=== PATIENT | male | born 1955 | race Caucasian/White ===

== ENCOUNTER → 2020-09-25 08:47 | Outpatient (BNVA) | payer MEDICARE, MEDICAID, SELFPAY | PROVIDERS: Family Provider Anesthesiology Pain Medicine; Visit Provider Nurse Practitioner Family | DX: Z20.828 Contact with and (suspected) exposure to other viral communicable diseases (principal) | CPT/HCPCS: 87635 ==

== ENCOUNTER 2021-10-27 14:05 | Outpatient (CLI) | payer SELFPAY ==
--- NOTE | 2021-10-27 14:20 | USCV_ITS ---
Omer Kartik Age: 66 Gender: M : 1955 Exam Date: 10/27/2021 14:40 Ordering Phys: Enzo West DO Technologist: Tunde Cuello Exam Location: [facility] – [place] Indication: edema PROCEDURES: Venous duplex imaging was performed in only the right lower extremity. The following venous structures were evaluated: common femoral vein, profunda vein, proximal portion of the greater saphenous vein, superficial femoral vein, and the popliteal vein. In addition, the posterior tibial and peroneal trunk were evaluated. Serial compression, augmentation maneuvers, and spectral Doppler flow evaluation were performed. FINDINGS: Normal 2-D Doppler and augmentation and compressibility throughout the lower extremity venous structures. Additional imaging through the proximal calf veins also reveals no thrombus. Limited evaluation of the greater saphenous vein is patent with no thrombus. CONCLUSIONS No DVT right lower extremity. Dr. Sol Cohen DO (Electronically Signed) Final Date: 27 October 2021 16:47 S
== END 2021-10-27 14:06 | disposition home or self-care (01) ==
LOC: RAD 14:06
PROVIDERS: Family Provider Anesthesiology Pain Medicine; PCP Family Medicine; Visit Provider Family Medicine
DX: R60.9 Edema, unspecified (principal)
CPT/HCPCS: 93971

== ENCOUNTER → 2022-08-13 10:01 | Outpatient (BNVA) | payer MEDICARE, SELFPAY | PROVIDERS: Family Provider Anesthesiology Pain Medicine; PCP Family Medicine; Visit Provider Family Medicine | DX: I10 Essential (primary) hypertension (principal); M19.90 Unspecified osteoarthritis, unspecified site; G89.29 Other chronic pain; G47.00 Insomnia, unspecified; M51.36 Other intervertebral disc degeneration, lumbar region; R25.2 Cramp and spasm; R60.9 Edema, unspecified | CPT/HCPCS: 80053; 80061 ==

== ENCOUNTER → 2023-02-04 08:26 | Outpatient (BNVA) | payer MEDICARE, SELFPAY | PROVIDERS: Family Provider Anesthesiology Pain Medicine; PCP Family Medicine; Visit Provider Family Medicine | DX: G47.00 Insomnia, unspecified (principal); G89.29 Other chronic pain; I10 Essential (primary) hypertension; R60.9 Edema, unspecified; R25.2 Cramp and spasm | CPT/HCPCS: 80053; 83735 ==

== ENCOUNTER → 2023-08-01 10:51 | Outpatient (BNVA) | payer MEDICARE, SELFPAY | PROVIDERS: Family Provider Anesthesiology Pain Medicine; PCP Family Medicine; Visit Provider Family Medicine | DX: G89.29 Other chronic pain (principal); I10 Essential (primary) hypertension; M19.90 Unspecified osteoarthritis, unspecified site; Z13.6 Encounter for screening for cardiovascular disorders | CPT/HCPCS: 80053; 80061 ==

== ENCOUNTER → 2024-07-10 09:59 | Outpatient (BNVA) | payer MEDICARE, SELFPAY | PROVIDERS: Family Provider Anesthesiology Pain Medicine; PCP Family Medicine; Visit Provider Family Medicine | DX: I10 Essential (primary) hypertension (principal); M19.90 Unspecified osteoarthritis, unspecified site | CPT/HCPCS: 80053; 80061 ==

== ENCOUNTER → 2024-12-13 09:35 | Outpatient (BNVA) | payer MEDICARE, SELFPAY | PROVIDERS: Family Provider Anesthesiology Pain Medicine; PCP Family Medicine; Visit Provider Family Medicine | DX: M25.519 Pain in unspecified shoulder (principal); M19.90 Unspecified osteoarthritis, unspecified site; Z98.890 Other specified postprocedural states | CPT/HCPCS: 73030 ==

== ENCOUNTER 2024-12-18 07:04 | Outpatient (CLI) | payer MEDICARE, SELFPAY ==
--- NOTE | 2024-12-18 07:15 | MR_ITS ---
WS: [id number] MRI RIGHT SHOULDER HISTORY: M25.519 - Pain in unspecified shoulder COMPARISON: Radiograph 12/13/2024 TECHNIQUE: Multiplanar sequences of the shoulder joint are submitted. Several sequences are limited by motion. Moderate AC joint arthritis. Narrowing of the AC joint with hypertrophic osteophytes. Moderate amount of fluid in the subacromial and subdeltoid bursa. AC joint osteophytes encroach upon the supraspinatus. Biceps tendon subluxed from the bicipital groove. No os acromion. High riding humeral head nearly abutting the undersurface of the acromion. Loss of the normal cortex surrounding the humeral head with osteophyte formation. Complete tear of the supraspinatus tendon with retraction to the medial humeral head. Moderate to severe supraspinatus atrophy. Infraspinatus atrophy is also present. Tendinopathy in the distal infraspinatus tendon but no tear identified. This area is limited by motion. There are few small intra-articular bodies within the joint effusion surrounding the humeral head. Marked narrowing of the coracohumeral interval. Marked tendinopathy in the subscapularis tendon. No full-thickness tear. No labral tear identified. Labral evaluation is limited by motion. The anterior and posterior labrum does appear normal. MR/MR shoulder RT wo con* [id number] IMPRESSION: 1. Study is compromised by motion artifact on several sequences. 2. Moderate AC joint arthritis. 3. Complete tear with retraction subscapularis tendon. 4. Infraspinatus tendon distally is not identified. Tear is not excluded. 5. Infraspinatus and supraspinatus muscle atrophy. 6. Advanced subscapularis tendinopathy. Narrowing of the coracohumeral interva l encroaching upon the subscapularis tendon. 7. Dislocated biceps tendon.
== END 2024-12-18 07:05 | disposition home or self-care (01) ==
PROVIDERS: PCP Family Medicine; Visit Provider Family Medicine
DX: M19.011 Primary osteoarthritis, right shoulder (principal); S46.811A Strain of other muscles, fascia and tendons at shoulder and upper arm level, right arm, initial encounter; X58.XXXA Exposure to other specified factors, initial encounter; M62.511 Muscle wasting and atrophy, not elsewhere classified, right shoulder; M67.813 Other specified disorders of tendon, right shoulder; R93.7 Abnormal findings on diagnostic imaging of other parts of musculoskeletal system; M25.711 Osteophyte, right shoulder; M75.121 Complete rotator cuff tear or rupture of right shoulder, not specified as traumatic
CPT/HCPCS: 73221

== ENCOUNTER → 2025-03-19 10:55 | Outpatient (BNVA) | payer MEDICARE, SELFPAY | PROVIDERS: PCP Family Medicine; Visit Provider Family Medicine | DX: N39.0 Urinary tract infection, site not specified (principal) | CPT/HCPCS: 81000; 87077; 87086; 87184 ==

== ENCOUNTER 2025-03-29 05:00 | Outpatient (RCR) | payer MEDICARE, SELFPAY | END 2025-04-28 23:59 | disposition home or self-care (01) | LOC: APT 05:00 | PROVIDERS: Visit Provider Nurse Practitioner Family | DX: Z98.890 Other specified postprocedural states (principal) | CPT/HCPCS: 97110; 97140; 97161; 97530 ==

== ENCOUNTER 2025-04-29 05:00 | Outpatient (RCR) | payer MEDICARE, SELFPAY | END 2025-05-28 23:59 | disposition home or self-care (01) | LOC: APT 05:00 | PROVIDERS: Visit Provider Nurse Practitioner Family | DX: Z98.890 Other specified postprocedural states (principal) | CPT/HCPCS: 97110; 97112; 97140; 97530 ==

== ENCOUNTER → 2025-06-06 09:16 | Outpatient (BNVA) | payer MEDICARE, SELFPAY | PROVIDERS: PCP Family Medicine; Visit Provider Family Medicine | DX: I10 Essential (primary) hypertension (principal); M19.09 Primary osteoarthritis, other specified site; G89.29 Other chronic pain; G47.00 Insomnia, unspecified | CPT/HCPCS: 80053; 80061; 85025 ==

== ENCOUNTER 2025-06-25 08:58 | Outpatient (RCR) | payer MEDICARE, SELFPAY | END 2025-06-28 23:59 | disposition home or self-care (01) | LOC: APT 08:58 | PROVIDERS: Visit Provider Nurse Practitioner Family | DX: Z98.890 Other specified postprocedural states (principal) | CPT/HCPCS: 97110 ==

== ENCOUNTER 2025-07-16 11:07 | Outpatient (RCR) | payer MEDICARE, SELFPAY | END 2025-07-23 13:36 | disposition home or self-care (01) | LOC: APT 11:07 | PROVIDERS: PCP Family Medicine; Visit Provider Nurse Practitioner Family | DX: Z47.89 Encounter for other orthopedic aftercare (principal) | CPT/HCPCS: 97110 ==